=== PATIENT | female | born 1975 | race Caucasian/White ===

== ENCOUNTER 2016-05-06 14:55 | Emergency (ER) ==
[2016-05-06 15:15] LABS: MANUAL DIFF NEEDED? NO
[2016-05-06 15:37] LABS: BASO% 0.7 % (0.0-0.8); EOS# 0.31 X1000 (0.0-0.7); EOS% 4.2 % (0.0-10.0); HEMATOCRIT 40.6 % (37.0-47.0); HEMOGLOBIN 13.9 g/dL (12.0-16.0); LYMPH# 2.52 X1000 (1.2-3.4); LYMPH% 33.9 % (20.5-51.1); MCH 30.1 PG (27-31); MCHC 34.2 g/dL (33-37); MCV 87.9 FL (81-99); MONO# 0.44 X1000 (0.11-0.59); MONO% 5.9 % (1.7-9.3); MPV 10.4 FL (7.4-10.4); NEUT% 55.3 % (42.2-75.2); PLT 420 X1000 (130-400); RBC 4.62 XMIL (4.2-5.4)
[2016-05-06 15:42] LABS: AGAP 13; ALKALINE PHOSPHATASE 75 U/L (32-104); AMYLASE 54 U/L (20-200); BUN 10 mg/dL (8-22); CALCIUM 9.4 mg/dL (8.8-10.2); CHLORIDE 104 mmol/L (98-107); COSMO 279; GOT 13 U/L (10-30); GPT 11 U/L (10-36); LIPASE 20 U/L (13-60); POTASSIUM 4.1 mmol/L (3.5-5.1); SODIUM 140 mmol/L (136-145); TCO2 23 mmol/L (25-35); TOTAL BILIRUBIN 0.22 mg/dL (0.20-1.00)
[2016-05-06 16:04] LABS: URINE CULTURE NEEDED? NO; URINE MICRO REVIEW NEEDED? NO; URINE SOURCE CLEAN CATCH
--- NOTE | 2016-05-06 16:12 | PROVIDER DOCUMENTATION ---
HPI-General Adult - General Chief Complaint: Abdominal Pain Stated Complaint: ABD PAIN Time Seen by Provider: 05/06/16 16:02 Source: patient Allergies/Adverse Reactions: Patient Allergies Allergy/AdvReac Type Severity Reaction Status Date / Time No Known Allergies Allergy Verified 02/06/16 19:48 Home Medications: Home Medication List Medication Instructions Recorded Confirmed Last Taken Type Dicyclomine [Bentyl] 10 mg PO TID #30 capsule 05/06/16 Unknown Rx Hydrocodone/Acetaminophen [[place] 1 tab PO DAILY 05/06/16 05/06/16 05/06/16 11: 00 History 7.5-325 Tablet] Nitrofurantoin Macrocrystal 100 mg PO BID #20 capsule 05/06/16 Unknown Rx [Nitrofurantoin] Phenazopyridine HCl [Pyridium] 100 mg PO TID #6 tablet 05/06/16 Unknown Rx Promethazine [Phenergan] 25 mg PO Q6H PRN PRN #20 tablet 05/06/16 Unknown Rx Trazodone HCl 1 tab PO QHS 05/06/16 05/06/16 05/05/16 21:00 History - History of Present Illness -Gen Adult Nature of Presenting Problems: 40 y/o WF c/o nausea, abd. pain x 2-3 weeks, bilat ear pain x 1 day, low back pain x 1 week. Pt states epigastric pain, R low back pain, and RLQ pain. Denies V/C, fever/chills. States diarrhea x 6 today only. States LMP MAY 03. Reports bad odor to urine, frequency, urgency, hematuria, denies any dysuria. Pain 6/10, 9/10 at its worst. Review of Systems - Adult - REVIEW OF SYSTEMS - ADULT Constitutional: reports: no symptoms reported. denies: chills, fever Eyes: reports: no symptoms reported. denies: blurred vision, double vision Ears, Nose, Mouth & Throat: reports: see HPI, ear pain. denies: loose teeth, throat pain Cardiovascular: reports: no symptoms reported. denies: chest pain, palpitations Respiratory: reports: no symptoms reported Gastrointestinal: reports: see HPI, abdominal pain, diarrhea, nausea. denies: constipation, vomiting Genitourinary: reports: see HPI, frequency, flank pain, hematuria, urgency. denies: dysuria Musculoskeletal: reports: no symptoms reported. denies: joint pain, joint swelling Integumentary: reports: no symptoms reported. denies: nail changes, rash Neurological: reports: no symptoms reported. denies: headache/migraines, numbness, paresthesia Psychiatric: reports: no symptoms reported Endocrine: reports: no symptoms reported. denies: cold intolerance, heat intolerance Hematologic/Lymphatic: reports: no symptoms reported. denies: easy bruising, prolonged bleeding Allergic/Immunologic: reports: no symptoms reported All Other Systems: Reviewed and Negative Past History - Adult - PAST MEDICAL HISTORY-ADULT Review of Records: reports: Nursing Assessment Review, Medications Reviewed Major Childhood Illnesses: reports: denies history Cardiovascular: reports: denies history Respiratory: reports: denies history Gastrointestinal: reports: denies history Obstetrical/Gynecological: reports: ovarian cysts LMP: 05/03/16 Genitourinary: reports: denies history Musculoskeletal: reports: fibromyalgia, intervertebral disc disease, other ( carpal tunnel bilat) Neurological: reports: Seizures/Epilepsy Psychiatric: reports: anxiety Endocrine/Immune: reports: denies history Other Conditions: reports: denies history - PRIOR SURGERIES/PROCEDURES Surgical/Procedure History: reports: , tonsillectomy, orthopedic ( extremity) (pins in R elbow due to trauma) - IMMUNIZATION STATUS Childhood Immunizations: See Nurse Assessment Flu Vaccine: See Nurse Assessment - FAMILY HISTORY Family History: reviewed, not pertinent - SOCIAL HISTORY Smoking: cigarettes, greater than 1 pack/day Provider spent 3-5 mins advising pt. on dangers of tobacco.: Discussed manners to quit use, and f/u contacts for add'l counseling. Substance Use: none/never Alcohol Use Frequency: never Physical Exam-General - PHYSICAL EXAM-ADULT Initial Vital Signs Reviewed: Yes - CONSTITUTIONAL General Appearance: alert, mild distress - EYES Eyes: pink conjunctivae - HEAD, EARS, NOSE, MOUTH & THROAT HENMT: normocephalic/atraumatic, moist mucous membranes, TMs normal - NECK Neck: supple, normal inspection - RESPIRATORY Respiratory: lungs clear, normal breath sounds. negative: crackles, rales, rhonchi, stridor, wheezing - CARDIOVASCULAR Cardiovascular: regular rate, rhythm. negative: bradycardia, tachycardia - GASTROINTESTINAL (ABDOMEN) Abdominal Exam: normal bowel sounds, soft, tenderness (generalized, worse in epigastric). negative: distended, guarding, rigid, rebound, Magaña's sign - MUSCULOSKELETAL Back Exam: CVA tenderness (R) Extremity: normal gait - SKIN Integumentary: normal color, normal turgor, warm/dry - NEUROLOGIC Neurologic: negative: aphasia - PSYCHIATRIC Psych/Mental Status: normal mood/affect, normal thought content, normal thought process, oriented x 3 Progress - PLAN OF CARE/RESULTS Progress/Plan/Lab Results: Laboratory Tests 05/06/16 05/06/16 05/06/16 15:03 15:03 15:05 WBC RBC Hgb Hct MCV MCH MCHC RDW Std Deviation Plt Count MPV Immature Gran % (Auto) Neut % (Auto) Lymph % (Auto) [place] % (Auto) Eos % (Auto) Baso % (Auto) Immature Gran # (Auto) Neut # (Auto) Lymph # (Auto) [place] # (Auto) Eos # (Auto) Baso # (Auto) Sodium 140 Potassium 4.1 Chloride 104 Carbon Dioxide 23 L Anion Gap 13 BUN 10 Creatinine 0.7 Estimated GFR/1.73 m2 > 60 BUN/Creatinine Ratio 14 Glucose 106 H Calculated Osmolality 279 Calcium 9.4 Total Bilirubin 0.22 AST 13 ALT 11 Alkaline Phosphatase 75 Total Protein 7.0 Albumin 4.0 Globulin 3.0 Albumin/Globulin Ratio 1.3 Amylase 54 Lipase 20 Urine Source CLEAN CATCH Urine Color ORANGE Urine Turbidity HAZY Urine pH 7.5 Ur Specific [place] 1.009 Urine Protein TRACE A Ur Glucose (Stick) NEGATIVE Ur Ketones (Stick) NEGATIVE Urine Blood LARGE A Urine Nitrite NEGATIVE Urine Bilirubin NEGATIVE Urobilinogen Dipstick NORMAL Urine Leukocytes NEGATIVE Urine WBC (Auto) <10 Urine RBC (Auto) TNTC A U Epithel Cells (Auto) <10 Urine Bacteria (Auto) NEGATIVE Urine Test NEGATIVE 05/06/16 15:05 WBC 7.43 RBC 4.62 Hgb 13.9 Hct 40.6 MCV 87.9 MCH 30.1 MCHC 34.2 RDW Std Deviation 12.2 Plt Count 420 H MPV 10.4 Immature Gran % (Auto) 0.0 Neut % (Auto) 55.3 Lymph % (Auto) 33.9 [place] % (Auto) 5.9 Eos % (Auto) 4.2 Baso % (Auto) 0.7 Immature Gran # (Auto) 0.00 Neut # (Auto) 4.11 Lymph # (Auto) 2.52 [place] # (Auto) 0.44 Eos # (Auto) 0.31 Baso # (Auto) 0.05 Sodium Potassium Chloride Carbon Dioxide Anion Gap BUN Creatinine Estimated GFR/1.73 m2 BUN/Creatinine Ratio Glucose Calculated Osmolality Calcium Total Bilirubin AST ALT Alkaline Phosphatase Total Protein Albumin Globulin Albumin/Globulin Ratio Amylase Lipase Urine Source Urine Color Urine Turbidity Urine pH Ur Specific [place] Urine Protein Ur Glucose (Stick) Ur Ketones (Stick) Urine Blood Urine Nitrite Urine Bilirubin Urobilinogen Dipstick Urine Leukocytes Urine WBC (Auto) Urine RBC (Auto) U Epithel Cells (Auto) Urine Bacteria (Auto) Urine Test Orders Category Date Time Status Saline Loc DIRECTED Care 05/06/16 15:02 Active NPO Diet 05/06/16 15:02 Completed RENAL STONE SEARCH [CT] Stat Exams 05/06/16 16:18 Draft AMYLASE [CHEM] Stat Lab 05/06/16 15:05 Completed CBC WITH ELECTRONIC DIFF [HEME] Stat Lab 05/06/16 15:05 Completed COMPREHENSIVE METABOLIC PANEL [CHEM] Stat Lab 05/06/16 15:05 Completed LIPASE [CHEM] Stat Lab 05/06/16 15:05 Completed TEST-URINE [PREG] Stat Lab 05/06/16 15:03 Completed URINALYSIS W/POSS RFLX CULT [URINALYSIS] Stat Lab 05/06/16 15:03 Completed Vital Signs Temp Pulse Resp BP Pulse Ox 05/06/16 18:21 69 123/64 99 05/06/16 15:00 97.8 F 88 20 117/71 99 No Known Allergies Allergy (Verified 02/06/16 19:48) Dicyclomine [Bentyl] 10 mg PO TID #30 capsule 05/06/16 Hydrocodone/Acetaminophen [[place] 7.5-325 Tablet] 1 tab PO DAILY 05/06/16 Nitrofurantoin Macrocrystal [Nitrofurantoin] 100 mg PO BID #20 capsule 05/06/16 Phenazopyridine HCl [Pyridium] 100 mg PO TID #6 tablet 05/06/16 Promethazine [Phenergan] 25 mg PO Q6H PRN PRN #20 tablet 05/06/16 Trazodone HCl 1 tab PO QHS 05/06/16 NICOTINE DEPENDENCE, CIGARETTES, UNCOMPLICATED (05/06/16) OTALGIA, BILATERAL (05/06/16) FOLLICULAR CYST OF THE SKIN AND SUBCUTANEOUS TISSUE, UNSP (05/06/16) LOW BACK PAIN (05/06/16) FIBROMYALGIA (05/06/16) ACUTE CYSTITIS WITH HEMATURIA (05/06/16) EPIGASTRIC PAIN (05/06/16) RIGHT LOWER QUADRANT PAIN (05/06/16) EPIGASTRIC ABDOMINAL TENDERNESS (05/06/16) GENERALIZED ABDOMINAL TENDERNESS (05/06/16) NAUSEA (05/06/16) DIARRHEA, UNSPECIFIED (05/06/16) HEMATURIA, UNSPECIFIED (05/06/16) FREQUENCY OF MICTURITION (05/06/16) URGENCY OF URINATION (05/06/16) TOBACCO ABUSE COUNSELING (05/06/16) OTHER UNIVERSITY ADMINISTRATOR (CURRENT) DRUG THERAPY (05/06/16) PERSONAL HISTORY OF OTH DISEASES OF THE FEMALE GENITAL TRACT (05/06/16) I&O 05/07/16 05/08/16 05/09/16 06:59 06:59 06:59 Output Total 80 Balance -80 Laboratory 05/06/16 15:03 Urine Test NEGATIVE - CT/MRI 1 CT Study: Renal Stone Impression: See EMR Report (small 2 cm cyst in r groin. No inflammation. Probably of no consequency. Otherwise NAD. -per Dr. Call) Departure - Departure Time of Disposition Order: 17:43 DIAGNOSIS: Cyst UTI (urinary tract infection) Qualifiers: Urinary tract infection type: acute cystitis Hematuria presence: with hematuria Qualified Code(s): N30.01 - Acute cystitis with hematuria Disposition: HOME 01 Certified Medical Emergency: Emergent Condition: Stable Additional Instructions: Take medications as directed. Follow up with specialist if symptoms persist. drink plenty of fluids. ED Follow Up Instructions: You have been treated by a care provider in the Emergency Department. These instructions are being provided to you so you can have an understanding of how to care for yourself upon discharge. Upon discharge from the Emergency Department, you are responsible for making arrangements for follow-up care by a physician of your choice. Take all prescribed medications as directed. Return to the Emergency Department immediately for any new or worsening symptoms. You may call the Physician Referral phone number at [phone] to obtain a list of Physicians who are taking new patients. Prescriptions: Dicyclomine [Bentyl] 10 mg PO TID #30 capsule Nitrofurantoin Macrocrystal [Nitrofurantoin] 100 mg PO BID #20 capsule Promethazine [Phenergan] 25 mg PO Q6H PRN PRN #20 tablet PRN Reason: Nausea Phenazopyridine HCl [Pyridium] 100 mg PO TID #6 tablet Referrals: Shayan Weiss [Primary Care Provider] - Mary Pascual MD [STAFF PHYSICIAN] - Forms: Return to School/Parent Work Instructions: Urinary Tract Infection, [id number] Attestation - Physician/ SHEYLA Attestation Patient care was provided by Advanced Practice Provider:: Yes Advanced Practice Provider:: Yulissa Chapman Advanced Practice Provider documentation review:: The Mid-level provider documentation, treatment plan and medical decision making was reviewed by the physician who agrees with all treatment and medical decision making by the MLP.
[2016-05-06 16:21] LABS: BILIRUBIN URINE NEGATIVE (NEGATIVE); BLOOD URINE LARGE (NEGATIVE); COLOR ORANGE; GLUCOSE URINE NEGATIVE (NEGATIVE); LEUKOCYTES URINE NEGATIVE (NEGATIVE); NITRITE URINE NEGATIVE (NEGATIVE); PH URINE 7.5; PROTEIN URINE TRACE mg/dL (NEGATIVE); SP GRAVITY URINE 1.009; TURBIDITY URINE HAZY (CLEAR); UROBILINOGEN URINE NORMAL (NORMAL)
[2016-05-06 16:22] LABS: UR EPITHELIAL CELLS <10 /HPF (<10); URINE BACTERIA NEGATIVE /HPF; URINE RBC TNTC /HPF (<10); URINE WBC <10 /HPF (<10)
--- NOTE | 2016-05-06 17:49 | Diag Imaging Result Document ---
PROCEDURE NAME: RENAL STONE SEARCH - 05/06/2016 CT OF THE ABDOMEN AND PELVIS: COMPARISON: 07/02/2015. FINDINGS: There is a cystic appearing area over the right external inguinal ring. This is round and appears of simple fluid. This measures about 2.1 cm. No radiodense renal stones. No hydronephrosis or hydroureter. No bowel obstruction or inflammation. Normal appendix. Mild degenerative changes of the spine. No acute bony lesion. IMPRESSION: 1. New cystic area in the right groin. This does not appear inflamed and the significance is unclear. 2. Otherwise, unremarkable exam.
[2016-05-06 18:23] VITALS: BP 123/64
== END 2016-05-06 18:29 | disposition home or self-care (01) ==
LOC: ED 14:55
DX: N30.01 Acute cystitis with hematuria (principal); L72.9 Follicular cyst of the skin and subcutaneous tissue, unspecified; R10.13 Epigastric pain; R10.31 Right lower quadrant pain; R11.0 Nausea; H92.03 Otalgia, bilateral; M54.5 Low back pain; R19.7 Diarrhea, unspecified; R35.0 Frequency of micturition; R39.15 Urgency of urination; R31.9 Hematuria, unspecified; R10.817 Generalized abdominal tenderness; R10.816 Epigastric abdominal tenderness; M79.7 Fibromyalgia; F17.210 Nicotine dependence, cigarettes, uncomplicated; Z79.899 Other long term (current) drug therapy; Z87.42 Personal history of other diseases of the female genital tract; Z71.6 Tobacco abuse counseling
CPT/HCPCS: 36415; 74176; 80053; 81001; 81025; 82150; 83690; 85025; 99283